=== PATIENT | male | born 1985 | race Caucasian/White ===

== ENCOUNTER 2016-08-08 19:08 | Emergency (ER) | payer MEDICAID ==
[~2016-08-08] VITALS: Ht 182.9 cm; Wt 111.1 kg
[~2016-08-08 19:08] MED LIST: CITA-73 PO; LORA1TAB12 PO
[2016-08-08 19:54] LABS: Urine RBC None Seen /hpf (0 - 3)
[2016-08-08 20:06] LABS: Basophils # (auto) 0 uL; Basophils % (auto) 0.5 % (0.0-2.0); Eosinophils # (auto) 0.2 uL; Eosinophils % (auto) 1.5 % (0.0-7.0); Hematocrit 50.1 % (41.0-53.0); Hemoglobin 16.5 g/dL (13.5-17.5); Lymphocytes # (auto) 2.6 uL; Lymphocytes % (auto) 26.3 % (10.0-50.0); Mean Corpuscular Hemoglobin 30.3 pg (28.0-32.0); Mean Corpuscular Hgb Conc. 32.8 g/dL (32.0-36.0); Mean Corpuscular Volume 92.4 fL (80.0-100.0); Mean Platelet Volume 8.3 fL (7.4-10.4); Monocytes # (auto) 0.6 uL; Monocytes % (auto) 6.3 % (0.0-12.0); Neutrophils # (auto) 6.5 uL; Neutrophils % (auto) 65.4 % (37.0-80.0); Platelet Count (auto) 257 10^3/uL (140-450); Red Cell Distribution Width 12.6 % (11.6-16.0)
[2016-08-08 20:19] LABS: Urine Bilirubin Negative (Negative); Urine Blood Negative /uL (Negative); Urine Color Colorless (Yellow); Urine Glucose Normal (Normal); Urine Ketone Negative (Negative); Urine Nitrite Negative (Negative); Urine Urobilinogen Normal (Negative)
[2016-08-08 20:24] LABS: INR 1.02 (0.9-1.15); Partial Thromboplastin Time 26.5 sec (22.64-33.71); Prothrombin Time 10.5 sec (9.37-12.3)
[2016-08-08 20:34] LABS: Albumin 4.2 g/dL (3.4-5.0); BUN/Creatinine Ratio 13.3; Calcium 9.2 mg/dL (8.5-10.1); Magnesium 2.2 mg/dL (1.6-2.6)
[2016-08-08 20:38] LABS: Bilirubin, Total 0.4 mg/dL (0.2-1.0)
[2016-08-09 04:00] VITALS: BP 130/70
== END 2016-08-09 05:30 | disposition left against medical advice (07) ==
LOC: ER 19:13
DX: K86.1 Other chronic pancreatitis (principal); F10.10 Alcohol abuse, uncomplicated; F12.10 Cannabis abuse, uncomplicated; Z53.29 Procedure and treatment not carried out because of patient's decision for other reasons
CPT/HCPCS: 36415; 74176; 80053; 81001; 83735; 85025; 85049; 85610; 85730; 99285; G0434; J7030